=== PATIENT | female | born 1995 | race Caucasian/White ===

== ENCOUNTER 2022-07-16 09:44 | Emergency (ER) | payer OTHER, SELFPAY ==
--- NOTE | ~2022-07-16 | US_ITS ---
EXAMINATION: US ABDOMEN COMPLETE CLINICAL INFORMATION: Nausea and vomiting. Upper abdominal pain.. COMPARISON: Abdomen CT from 10/23/2015 TECHNIQUE: Real-time imaging of the abdominal viscera. FINDINGS: PANCREAS: The visualized portion of the pancreatic body is normal. The majority of the pancreas is obscured by bowel gas. ABDOMINAL AORTA: The proximal, mid, and distal segments are normal in caliber. INFERIOR VENA CAVA: Visualized portions are normal. LIVER: The liver has normal size and contour. The parenchyma is diffusely hyperechoic. Mild steatosis is suspected. No focal liver lesion or intrahepatic bile duct dilatation. Color Doppler images show normal flow direction within the main portal vein. GALLBLADDER: Normal. The gallbladder is physiologically distended without evidence of stones, sludge, polyps, wall thickening or pericholecystic fluid. COMMON BILE DUCT: Normal in caliber measuring 0.5 cm in diameter. RIGHT KIDNEY: Normal. No hydronephrosis. No sonographic evidence of renal calculi or focal parenchymal lesions. The kidney measures 10.1 cm in maximum dimension. LEFT KIDNEY: Normal. No hydronephrosis. No sonographic evidence of renal calculi or focal parenchymal lesions. The kidney measures 11.9 cm in maximum dimension. SPLEEN: Mildly enlarged, 14 cm in maximum dimension. No focal splenic lesion. FREE FLUID: None. US/US abdomen complete IMPRESSION: * Mild diffuse hepatic steatosis. * Gallbladder is normal. No evidence of cholelithiasis or biliary tract obstruction. * Mild splenomegaly is noted.
[2022-07-16 09:51] VITALS: BP 91/64; PULSE 98; RESP 18; TEMP 36.7; O2SAT 99; BMI 32.9
[2022-07-16 10:48] LABS: MANUAL DIFF FLAG NO
[2022-07-16] MEDS: ondansetron HCL 4 MG/2 ML VIAL IVPUSH (10:48)
[2022-07-16] MEDS: diphenhydrAMINE HCL 50 MG/ML VIAL IVPUSH (10:48)
[2022-07-16] MEDS: Ketorolac Tromethamine 30 MG/ML VIAL IVPUSH (10:48)
[2022-07-16 10:49] LABS: Basophils Percent Auto 0.3 % (0-2); Eosinophils Percent Auto 0.3 % (0-4); Hematocrit 35.7 % (37.0-47.0); Hemoglobin 12.7 g/dl (12.0-16.0); Imm Gran Abs Auto 0.01 X10*3/uL (0.00-0.03); Imm Gran Pct Auto 0.3 % (0.0-0.4); Lymphocytes Absolute Auto 1.1 X10*3/uL (1.2-4.9); Lymphocytes Percent Auto 29.2 % (20-40); Mean Corpuscular HGB Conc 35.6 g/dl (31.0-35.0); Mean Corpuscular Hemoglobin 31.2 pg (27.0-33.0); Mean Corpuscular Volume 87.7 fL (80.0-98.0); Mean Platelet Volume 9.4 fL (9.4-12.3); Monocytes Absolute Auto 0.2 X10*3/uL (0.1-1.2); Monocytes Percent Auto 6.2 % (2-11); Neutrophils Absolute Auto 2.4 x10*3/uL (2.0-8.3); Neutrophils Percent Auto 63.7 % (45-73); Platelet Count 204 X10*3/uL (160-400); Red Blood Count 4.07 X10*6/uL (4.20-5.50); Red Cell Distribution Width 11.9 % (11.0-16.0); White Blood Count 3.7 X10*3/uL (4.8-10.8)
[2022-07-16] MEDS: 0.9 % Sodium Chloride 1,000 ML 999 ML IVCONT (10:49)
--- NOTE | 2022-07-16 10:54 | PC.NURSE ---
IV established, labs drawn and sent. Medicated per the MAR. Fluids infusing, ultrasound at bedside.
[2022-07-16 11:10] LABS: Alanine Aminotransferase 29 U/L (0-31); Alkaline Phosphatase 49 U/L (39-117); Anion Gap 15 (12-20); Aspartate Amino Transferase 26 U/L (5-31); Bilirubin Total 0.4 mg/dL (0.0-1.0); Blood Urea Nitrogen 9 mg/dL (9-16); Calcium 8.8 mg/dL (8.4-10.2); Carbon Dioxide 23 mmol/L (22-29); Chloride 105 mmol/L (96-108); Creatinine Clr Calc Pharmacy 104.1; Estimated Glomerular Filt Rate > 60; Glucose Random 79 mg/dL (60-115); Magnesium 1.9 mg/dL (1.6-2.6); Potassium 3.6 mmol/L (3.3-5.1); Sodium 139 mmol/L (135-145); Total Protein 6.8 g/dL (6.5-8.0)
[2022-07-16 11:25] LABS: HCG Quantitative < 2 mIU/mL
--- NOTE | 2022-07-16 12:14 | ED_ITS ---
HPI - General Adult General Chief complaint: General Medical Stated complaint: Headache, Body aches, Multiple complaints Time Seen by Provider: 07/16/22 10:00 Source: patient Mode of arrival: ambulatory Limitations: no limitations History of Present Illness HPI narrative: 26-year-old female presenting to the ER with persistent flu like symptoms since Tuesday worse today. She reports she was at 2 of the [facility] facilities this week and was diagnosed with the flu and was given morphine while she was in the emergency department and then discharged with oxycodone and she reports she has been taking the oxycodone as prescribed along with the Zofran and no symptomatic relief. She reports to me ?my body aches are so severe they are worse than contractions?. She reports she has not been able to keep anything down she has been vomiting everything up. She reports upper abdominal pain. She denies any fevers, dizziness, chest pain or shortness of breath, dysuria, hematuria, abnormal vaginal discharge, black or bloody stools, diarrhea constipation or any other symptoms complaints or concerns at this time. MD complaint: Persistent flu-like symptoms Onset (ago): day(s) (2) Related Data Previous Rx's Medication Instructions Recorded acetaminophen 500 mg tablet 500 mg PO Q6H PRN pain #14 tabs 07/16/22 (Tylenol Extra Strength) ibuprofen 800 mg tablet 800 mg PO Q8H PRN pain #14 tabs 07/16/22 nitrofurantoin 100 mg PO BID 7 days #14 caps 07/16/22 monohydrate/macrocrystals 100 mg capsule (Macrobid) ondansetron HCl 4 mg tablet 4 mg PO Q8H #14 tabs 07/16/22 Allergies Allergy/AdvReac Type Severity Reaction Status Date / Time red dye [RED DYE] Allergy Intermediate HIVES Unverified 03/06/20 19:01 strawberry [STRAWBERRY] Allergy Intermediate ANAPHYLAXIS Unverified 03/06/20 19:01 metoclopramide [From REGLAN] Allergy Unknown UNKNOWN Unverified 03/06/20 19:01 amoxicillin [AMOXICILLIN] AdvReac Unknown HIVES Unverified 03/06/20 19:01 Penicillins [PCN] AdvReac Unknown HIVES Unverified 03/06/20 19:01 Review of Systems Review of Systems: Constitutional : + chills/fatigue/malaise, No Weight loss, No Fever, No Night Sweats ENT/Mouth : No Hearing loss, No Ear Pain, + Nasal Congestion, No Sinus Pain, No Hoarseness, No sore throat, + Rhinorrhea, No Swallowing Difficulty Eyes: No Eye Pain, No Swelling, No Redness, No Foreign Body, No Discharge, No V ision Changes Cardiovascular : No Chest Pain, No SOB, No Dyspnea on Exertion, No Orthopnea, No Edema, No Palpitations Respiratory : No Cough, No Sputum, No Wheezing, No Smoke Exposure, No Dyspnea Gastrointestinal : + Nausea, + Vomiting, No Diarrhea, No Constipation, + upper abdominal Pain, No Hematochezia, No Melena Genitourinary : no irregular bleeding, No Dysuria, No Urinary Frequency, No Hematuria, No Urinary Incontinence, No Urgency, No Flank Pain, No Urinary Flow Changes, No Hesitancy Musculoskeletal : No joint pain, + Myalgias, No Joint Swelling Skin : No Skin Lesions, No rash Neuro : No Weakness, No Numbness, No Paresthesias, No Loss of Consciousness, No Dizziness, No Headache Psych : No Anxiety/Panic, No Depression, No SI/HI/AH/VH, No Social Issues, Heme/Lymph: No Bruising, No Bleeding,No Lymphadenopathy Endocrine : No Polyuria, No Polydipsia, No Temperature Intolerance Yes all other systems are reviewed and are negative [facility] Past Medical History Attestation statement: The following information was validated with the patient. Source: old records reviewed and nursing notes reviewed Social History Social History Advance Directives: No Advance Directives Information Provided: No Physical Exam ED Vital Signs: Vital Signs - 24 hr 07/16/22 09:51 07/16/22 12:17 Temperature 98.1 F 98.0 F Pulse Rate 98 79 Respiratory Rate 18 18 Blood Pressure 91/64 98/51 L Pulse Oximetry 99 98 Oxygen Delivery Method Room Air Room Air BMI result Body Mass Index 32.9 vital signs have been reviewed as normal and appeared to be correct. Blood pressure normal. Heart rate normal. Respiration rate normal. Temperature normal. Oxygen saturation normal. Appearance: Alert. Oriented X3. No acute distress. Head: Normal external exam. Normocephalic. Atraumatic. Eyes: PERRLA. EOMI. Conjunctiva and sclera normal. Eyelids normal. ENT: EAC normal. TM's Normal.Pharynx normal. Uvula midline. Moist mucous membranes. No lesions/ulcerations or masses noted on the tongue. Normal voice. No trismus noted. No drooling noted. No muffled voice noted. Neck: Normal inspection. Neck supple. FROM. No adenopathy. Thyroid Normal. No tracheal deviation noted. No crepitus is noted. No meningeal signs. No neck mass noted. No signs of trauma noted. CVS: Normal heart rate and rhythm. Heart sound normal. Pulses normal throughout. No murmurs/rales/gallops. Respiratory: No respiratory distress. Painless inspiration. Breath sounds normal. No wheezes/rales/rhonchi noted. Chest nontender. No crepitus is noted. No signs of trauma noted. No accessory muscle usage noted or decreased air movement noted. No signs of trauma. Abdomen: Soft and mild tenderness to the epigastric area. Bowel sounds normal i n all 4 quadrants. No distention noted. No organomegaly noted. No visible injury noted. Back: No CVA tenderness. Full range of motion noted. No signs of trauma. Patient neuro intact bilaterally and distally on all 4 extremities. Patient's reflexes intact bilaterally and distally on all 4 extremities. No rashes/lesion/induration/fluctuance or signs of infection noted. Skin: Skin warm and dry. Normal skin color. Normal skin turgor. No rashes/lesions/lacerations noted. Extremities: No lower extremity edema. No calf tenderness is noted. Extremities exhibit normal range of motion and nontender. Neuro: Oriented X 3. No motor deficit. No sensory deficit. Reflexes normal. Normal steady gait. No focal neuro deficits noted. CN's II-XII intact bilaterally? Vascular: + radial pulses/+ 2 distal pedal pulses/+2 dorsalis pedis b/l. Normal cap refill. No cyanosis noted to upper extremity nails and lower extremity toes nails. Course Course Course Narrative: Ass: Influenza. Pt looks well, not dehydrated.? Breathing easily.? Labs obtained and all labs are within normal limits. Patient given a L of IV fluids. Ultrasound obtained and negative for any acute processes. No additional labs indicated. Not c/w ptx/ pericarditis / mediastinitis / meningitis.? UA revealed leukocytes therefore will DC home antibiotics for UTI. Patient now tolerating p.o. fluids/solids after given Zofran, Toradol and Benadryl. Patient reports she feels much better. Will DC home with instructions to return if any new or worsening symptoms to rest and increase her fluids and to follow up with her primary care provider. Patient understands agrees with this plan. Medications Administered Discontinued Medications Generic Name Dose Route Start Last Admin Trade Name Freq PRN Reason Stop Dose Admin Diphenhydramine HCl 50 mg 07/16/22 10:42 07/16/22 10:48 Diphenhydramine Hcl 50 Mg/Ml Vial IVPUSH 07/16/22 10:43 50 mg ONCE ONE Administration Sodium Chloride 1,000 mls @ 999 mls/hr 07/16/22 10:30 07/16/22 12:15 Ns IVCONT 07/16/22 11:30 Infused .Q1H1M DAYANA Infusion Ketorolac Tromethamine 30 mg 07/16/22 10:28 07/16/22 10:48 Ketorolac Tromethamine 30 Mg/Ml Vial IVPUSH 07/16/22 10:29 30 mg ONCE ONE Administration Ondansetron HCl 4 mg 07/16/22 10:29 07/16/22 10:48 Ondansetron Hcl 4 Mg/2 Ml Vial IVPUSH 07/16/22 10:30 4 mg ONCE ONE Administration Medical Decision Making Lab Data MDM Lab Attestation statement: I reviewed the patient's lab results. 07/16/22 10:41 07/16/22 10:41 Labs: Lab Results 07/16/22 07/16/22 07/16/22 Range/Units 10:41 10:41 10:41 WBC 3.7 L (4.8-10.8) X10*3/uL RBC 4.07 L (4.20-5.50) X10*6/uL Hgb 12.7 (12.0-16.0) g/dl Hct 35.7 L (37.0-47.0) % MCV 87.7 (80.0-98.0) fL MCH 31.2 (27.0-33.0) pg MCHC 35.6 H (31.0-35.0) g/dl RDW 11.9 (11.0-16.0) % Plt Count 204 (160-400) X10*3/uL MPV 9.4 (9.4-12.3) fL Immature Gran % (Auto) 0.3 (0.0-0.4) % Neut % (Auto) 63.7 (45-73) % Lymph % (Auto) 29.2 (20-40) % Scurry % (Auto) 6.2 (2-11) % Eos % (Auto) 0.3 (0-4) % Baso % (Auto) 0.3 (0-2) % Lymph # (Auto) 1.1 L (1.2-4.9) X10*3/uL Scurry # (Auto) 0.2 (0.1-1.2) X10*3/uL Eos # (Auto) 0.0 (0.0-0.4) X10*3/uL Baso # (Auto) 0.0 (0.0-0.2) X10*3/uL Abs Immat Gran (auto) 0.01 (0.00-0.03) X10*3/uL Absolute Neuts (auto) 2.4 (2.0-8.3) x10*3/uL Absolute Nucleated RBC 0.000 (0.0-0.012) X10*3/uL Nucleated RBC % (auto) 0.0 (0.0-0.2) /100WBC Sodium 139 (135-145) mmol/L Potassium 3.6 (3.3-5.1) mmol/L Chloride 105 (96-108) mmol/L Carbon Dioxide 23 (22-29) mmol/L Anion Gap 15 (12-20) BUN 9 (9-16) mg/dL Creatinine 0.81 (0.5-1.4) mg/dL Estim Creat Clear Calc 104.1 Estimated GFR > 60 Random Glucose 79 (60-115) mg/dL Calcium 8.8 (8.4-10.2) mg/dL Magnesium 1.9 (1.6-2.6) mg/dL Total Bilirubin 0.4 (0.0-1.0) mg/dL AST 26 (5-31) U/L ALT 29 (0-31) U/L Alkaline Phosphatase 49 (39-117) U/L Total Protein 6.8 (6.5-8.0) g/dL Albumin 4.0 (3.5-5.0) g/dL Lipase 18 (8-78) U/L Beta HCG, Quant < 2 mIU/mL Urine Color Urine Appearance Urine pH (5.0-9.0) Ur Specific [place] (1.005-1.025) Urine Protein (Neg-Trace) mg/dL Urine Glucose (UA) (Negative) mg/dL Urine Ketones (Negative) mg/dL Urine Blood (Negative) Urine Nitrite (Negative) Ur Leukocyte Esterase (Negative) 07/16/22 Range/Units 12:12 WBC (4.8-10.8) X10*3/uL RBC (4.20-5.50) X10*6/uL Hgb (12.0-16.0) g/dl Hct (37.0-47.0) % MCV (80.0-98.0) fL MCH (27.0-33.0) pg MCHC (31.0-35.0) g/dl RDW (11.0-16.0) % Plt Count (160-400) X10*3/uL MPV (9.4-12.3) fL Immature Gran % (Auto) (0.0-0.4) % Neut % (Auto) (45-73) % Lymph % (Auto) (20-40) % Scurry % (Auto) (2-11) % Eos % (Auto) (0-4) % Baso % (Auto) (0-2) % Lymph # (Auto) (1.2-4.9) X10*3/uL Scurry # (Auto) (0.1-1.2) X10*3/uL Eos # (Auto) (0.0-0.4) X10*3/uL Baso # (Auto) (0.0-0.2) X10*3/uL Abs Immat Gran (auto) (0.00-0.03) X10*3/uL Absolute Neuts (auto) (2.0-8.3) x10*3/uL Absolute Nucleated RBC (0.0-0.012) X10*3/uL Nucleated RBC % (auto) (0.0-0.2) /100WBC Sodium (135-145) mmol/L Potassium (3.3-5.1) mmol/L Chloride (96-108) mmol/L Carbon Dioxide (22-29) mmol/L Anion Gap (12-20) BUN (9-16) mg/dL Creatinine (0.5-1.4) mg/dL Estim Creat Clear Calc Estimated GFR Random Glucose (60-115) mg/dL Calcium (8.4-10.2) mg/dL Magnesium (1.6-2.6) mg/dL Total Bilirubin (0.0-1.0) mg/dL AST (5-31) U/L ALT (0-31) U/L Alkaline Phosphatase (39-117) U/L Total Protein (6.5-8.0) g/dL Albumin (3.5-5.0) g/dL Lipase (8-78) U/L Beta HCG, Quant mIU/mL Urine Color Yellow Urine Appearance Cloudy Urine pH 6.0 (5.0-9.0) Ur Specific Chester <= 1.005 (1.005-1.025) Urine Protein Negative (Neg-Trace) mg/dL Urine Glucose (UA) Negative (Negative) mg/dL Urine Ketones 15 (Negative) mg/dL Urine Blood Negative (Negative) Urine Nitrite Negative (Negative) Ur Leukocyte Esterase Moderate (2+) H (Negative) Independent Interpretation I performed an independent interpretation of an: Ultrasound Interpretation: COMPARISON: Abdomen CT from 10/23/2015 TECHNIQUE: Real-time imaging of the abdominal viscera. FINDINGS: PANCREAS: The visualized portion of the pancreatic body is normal. The majority of the pancreas is obscured by bowel gas. ABDOMINAL AORTA: The proximal, mid, and distal segments are normal in caliber. INFERIOR VENA CAVA: Visualized portions are normal. LIVER: The liver has normal size and contour. The parenchyma is diffusely hyperechoic. Mild steatosis is suspected. No focal liver lesion or intrahepatic bile duct dilatation. Color Doppler images show normal flow direction within the main portal vein. GALLBLADDER: Normal. The gallbladder is physiologically distended without evidence of stones, sludge, polyps, wall thickening or pericholecystic fluid. COMMON BILE DUCT: Normal in caliber measuring 0.5 cm in diameter. RIGHT KIDNEY: Normal. No hydronephrosis. No sonographic evidence of renal calculi or focal parenchymal lesions. The kidney measures 10.1 cm in maximum dimension. LEFT KIDNEY: Normal. No hydronephrosis. No sonographic evidence of renal calculi or focal parenchymal lesions. The kidney measures 11.9 cm in maximum dimension. SPLEEN: Mildly enlarged, 14 cm in maximum dimension. No focal splenic lesion. FREE FLUID: None. US/US abdomen complete IMPRESSION: *? Mild diffuse hepatic steatosis. *? Gallbladder is normal. No evidence of cholelithiasis or biliary tract obstruction. *? Mild splenomegaly is noted. Discharge Plan Discharge Clinical Impression: Gastroenteritis, UTI (urinary tract infection) Patient Disposition: Home, Self-Care Instructions: Urinary Tract Infection in Women (ED), Gastroenteritis (ED) Prescriptions: New ondansetron HCl 4 mg tablet 4 mg PO Q8H Qty: 14 0RF ibuprofen 800 mg tablet 800 mg PO Q8H PRN (Reason: pain) Qty: 14 0RF acetaminophen [Tylenol Extra Strength] 500 mg tablet 500 mg PO Q6H PRN (Reason: pain) Qty: 14 0RF nitrofurantoin monohyd/m-cryst [Macrobid] 100 mg capsule 100 mg PO BID 7 Days Qty: 14 0RF Rx Instructions: must administer with a meal/food Referrals: Physician,Unknown J [Primary Care Provider] - (Your PCP as needed within 2 days) Stand Alone Forms: Work/School Release
[2022-07-16 12:17] VITALS: BP 98/51; PULSE 79; RESP 18; TEMP 36.7; O2SAT 98
[2022-07-16 12:25] LABS: Appearance Urine Cloudy; Color Urine Yellow; Glucose Urine UA Negative (Negative); Leukocyte Esterase Urine Moderate (2+) (Negative); Nitrite Urine Negative (Negative); Specific Gravity - Urine <= 1.005 (1.005-1.025); UMIC TRIGGER UACC YES; Urine Blood Negative (Negative); Urine Ketones 15 mg/dL (Negative); Urine Protein Negative (Neg-Trace)
[2022-07-16 12:32] LABS: Lipase 18 U/L (8-78)
[2022-07-16 12:36] LABS: Bacteria Urine 1+ (None Seen); Hyaline Casts Urine 0-2 /LPF (0-2); RBC Urine 0-2 /HPF (0-2); UACC Culture Trigger YES; WBC Urine 21-50 /HPF (0-5)
== END 2022-07-16 13:10 | disposition home or self-care (01) ==
PROVIDERS: Physician Assistant Medical; Emergency Provider Student in an Organized Health Care Education/Training Program
DX: K52.9 Noninfective gastroenteritis and colitis, unspecified (principal); N39.0 Urinary tract infection, site not specified; R10.10 Upper abdominal pain, unspecified
CPT/HCPCS: 36415; 76700; 80053; 81001; 83690; 83735; 84702; 85025; 87086; 96361; 96374; 96375; 99284; J1200; J1885; J2405

== ENCOUNTER 2022-12-26 17:19 | Emergency (ER) | payer OTHER, SELFPAY ==
[2022-12-26 18:07] VITALS: BP 122/82; PULSE 92; RESP 18; TEMP 36.1; O2SAT 100; BMI 33.1
--- NOTE | 2022-12-26 18:08 | ED_ITS ---
HPI - General Adult General Chief complaint: Extremity Problem Stated complaint: Right hand injury Time Seen by Provider: 12/26/22 20:42 Source: patient Mode of arrival: ambulatory Limitations: no limitations History of Present Illness HPI narrative: 27-year-old female who presents emergency department for evaluation of crush injury to the 2nd to 5th fingers of her right hand. She was moving weight, caring about 120 lb, when she walked through her door the weight is fell and crushed her the 2nd through 5th fingers of her right hand. She sustained a laceration to the tip of the middle finger. She developed immediate pain in all the fingers. She states she washed out the wound and covered it with sterile gauze and came to emergency department for evaluation. Her tetanus status is up-to-date, she had a tetanus shot 1 year prior after sustaining a dog bite. Related Data Previous Rx's Medication Instructions Recorded acetaminophen 500 mg tablet 500 mg PO Q6H PRN pain #14 tabs 07/16/22 (Tylenol Extra Strength) ibuprofen 800 mg tablet 800 mg PO Q8H PRN pain #14 tabs 07/16/22 nitrofurantoin 100 mg PO BID 7 days #14 caps 07/16/22 monohydrate/macrocrystals 100 mg capsule (Macrobid) ondansetron HCl 4 mg tablet 4 mg PO Q8H #14 tabs 07/16/22 oxycodone 5 mg tablet 5 mg PO Q6H PRN pain #8 tabs 12/26/22 Allergies Allergy/AdvReac Type Severity Reaction Status Date / Time red dye [RED DYE] Allergy Intermediate HIVES Verified 12/26/22 20:59 strawberry [STRAWBERRY] Allergy Intermediate ANAPHYLAXIS Verified 12/26/22 20:59 metoclopramide [From REGLAN] Allergy Unknown UNKNOWN Verified 12/26/22 20:59 amoxicillin [AMOXICILLIN] AdvReac Unknown HIVES Verified 12/26/22 20:59 Penicillins [PCN] AdvReac Unknown HIVES Verified 12/26/22 20:59 Review of Systems Review of Systems: Yes all other systems are reviewed and are negative [facility] Past Medical History [facility] Narrative: Past medical history: Asthma, pituitary tumor removed in 2016, kidney stones. Social history: She denies tobacco, alcohol and drug use. Social History Social History (Reviewed 12/26/22 @ 21:06 by TIAGO Luna Alcohol intake: current Alcohol intake frequency: holidays/special occasions only Smoked in Last 30 Days: No Use of substances other than those prescribed or required for medical reasons: Yes Substance Use Type: Marijuana Advance Directives: No Advance Directives Information Provided: No Patient : No Physical Exam ED Vital Signs: Vital Signs - 24 hr 12/26/22 18:07 Temperature 97 F Pulse Rate 92 Respiratory Rate 18 Blood Pressure 122/82 Pulse Oximetry 100 Oxygen Delivery Method Room Air BMI result Body Mass Index 33.1 Vital signs were normal. General: Awake, alert, female patient, pleasant, cooperative, no distress Extremity: Right hand: The patient has a C-shaped laceration to ventral aspect of the the tip of her right middle finger over the finger pad. Patient's fingers neurovascular intact. She has significant tenderness with palpation of the tip of the right middle finger with mild tenderness palpation of the tip of the 2nd 4th and 5th fingers. Extremities neurovascular intact. Course Course Course Narrative: RME: 27 yold female presents to the ED for right finger pain after weights fell on finger. Xray ordered. Medications Administered Discontinued Medications Generic Name Dose Route Start Last Admin Trade Name Freq PRN Reason Stop Dose Admin Bacitracin 1 appl 12/26/22 21:47 12/26/22 22:06 Bacitracin Oint 0.9 Gm Packet TOPICAL 12/26/22 21:48 1 appl ONCE ONE Administration Protocol Ibuprofen 400 mg 12/26/22 21:46 12/26/22 22:04 Ibuprofen 400 Mg Tablet PO 12/26/22 21:47 400 mg ONCE ONE Administration Lidocaine HCl 5 ml 12/26/22 20:53 12/26/22 20:58 Lidocaine Hcl 1 % Mpf 5 Ml Vial INFILTRATI 12/26/22 20:54 5 ml ONCE STA Administration Lidocaine HCl 5 ml 12/26/22 21:18 12/26/22 22:07 Lidocaine Hcl 1 % Mpf 5 Ml Vial INFILTRATI 12/26/22 21:19 Not Given ONCE STA Oxycodone HCl 5 mg 12/26/22 21:46 12/26/22 22:04 Oxycodone Hcl Immed Release 5 Mg Tablet PO 12/26/22 21:47 5 mg ONCE STA Administration Procedures Procedure Narrative Procedure Narrative: Right middle finger-finger C-shaped burst/ crush laceration measures 3.0 cm I explained the suture repair procedure with the patient and she did give me informed verbal consent to proceed. The wound right middle finger was prepped with Betadine and 5 cc of 1% lidocaine was used as a digital block. After 10 minutes the patient could still feel discomfort therefore another 4 cc of 1% lidocaine was used as a more proximal digital block. The wound was then explored, there are no foreign bodies found in the wound. The margins were undermined to relieve the pressure on the wound, protruding fat was debrided. The wound was then closed in 1 later using 8 sutures, 4.0 nylon. Patient tolerated the procedure well. The wound was dressed with bacitracin and a nonstick gauze dressing. Medical Decision Making Medical Decision Making MDM Narrative: 27-year-old female who presents emergency department for evaluation of a crush injury to the tips of her 2nd to 5th fingers of her right hand. Injury occurred prior to coming to emergency department. Patient's tetanus status is up-to-date. Patient did have tenderness palpation over the tips of her 2nd through 5th fingers with increased tenderness with palpation over the tip of the middle finger. There was a C-shaped laceration to the tip of the middle finger. X-rays were obtained and on my interpretation there was no acute fracture of her fingers and this correlates with the radiology reading. The patient's middle finger laceration was prepped with Betadine, digital block was obtained with 1% lidocaine 5 cc, , the wound was undermined, and protruding fat was debrided. The wound was closed in 1 layer using 4.0 nylon sutures, 8 interrupted sutures were used. Patient wound was covered with bacitracin and a dry sterile gauze dressing was applied Differential Diagnosis Differential diagnosis includes but is not limited to laceration, crush injury, fracture Independent Interpretation I performed an independent interpretation of an: Plain X-Ray Interpretation: Independent interpretation of the patient's right hand middle finger x-rays as follows: No acute fracture seen. This correlates with the radiology reading as well. Radiology Impression Discussion of test interpretation with radiology: I have reviewed the radiologist's reading. Radiologist Impression: XR hand wrist RT IMPRESSION: Soft tissue laceration at the long finger distal phalanx. No underlying fracture or radiodense foreign body. Dictated By:n External Record Review External record reviewed: Other ([place] patient prescription monitoring program -1 prescription for oxycodone June 2022 over 1 year search.) Discharge Plan Discharge Clinical Impression: Crushing injury of finger with hand, right, Laceration of middle finger of right hand without complication Patient Disposition: Home, Self-Care Instructions: Laceration (ED) Additional Instructions: Your laceration was repaired with 8 interrupted stitches. The sutures need to stay in for 7-10 days. Either your doctor, in urgent care clinic or the emergency department can remove these sutures for you. Apply bacitracin twice a day until the sutures are removed. Watch for signs of infection which would include redness, increased pain, drainage of pus from the wound, red streaks going up the finger and up your arm, fever, chills Take ibuprofen 200 mg pills, 2 pills every 6 hours as needed for pain. Take Tylenol (acetaminophen) 500 mg pills, 2 pills every 6 hours as needed for pain. For pain not relieved by ibuprofen or Tylenol take oxycodone 5 mg pills, 1 pill every 4 hours as needed for pain. Do not drive or work while taking this medication since they can cause sleepiness. Oxycodone is a narcotic medication that can be addicting. If you are concerned about addiction you can ask the pharmacist for less pills or do not get this prescription filled. Follow-up with your doctor in 2 days. Please return to the emergency department if your symptoms get worse or if you develop any symptoms that are concerning to you. Prescriptions: New oxycodone 5 mg tablet 5 mg PO Q6H PRN (Reason: pain) Qty: 8 0RF Rx Instructions: Patient may request partial refill; Partial Fill upon patient request. No Action ondansetron HCl 4 mg tablet 4 mg PO Q8H Qty: 14 0RF ibuprofen 800 mg tablet 800 mg PO Q8H PRN (Reason: pain) Qty: 14 0RF acetaminophen [Tylenol Extra Strength] 500 mg tablet 500 mg PO Q6H PRN (Reason: pain) Qty: 14 0RF nitrofurantoin monohyd/m-cryst [Macrobid] 100 mg capsule 100 mg PO BID 7 Days Qty: 14 0RF Rx Instructions: must administer with a meal/food Interventions: ED Discharge Assessment Last Done: 12/26/22 22:17 Discharge Date/Time: 12/26/22 22:17
[2022-12-26 22:02] VITALS: BP 123/87; PULSE 85; RESP 16; TEMP 37.1; O2SAT 99
== END 2022-12-26 22:17 | disposition home or self-care (01) ==
PROVIDERS: Emergency Provider Emergency Medicine Emergency Medical Services
DX: S67.192A Crushing injury of right middle finger, initial encounter (principal); S61.212A Laceration without foreign body of right middle finger without damage to nail, initial encounter; Y29.XXXA Contact with blunt object, undetermined intent, initial encounter; Y93.9 Activity, unspecified; Y92.9 Unspecified place or not applicable; Y99.9 Unspecified external cause status; Z79.899 Other long term (current) drug therapy
CPT/HCPCS: 12042; 73110; 73130; 99284